=== PATIENT | male | born 1990 | race Caucasian/White ===

== ENCOUNTER 2019-04-16 12:54 | Emergency (ER) | payer MEDICAID ==
[~2019-04-16] VITALS: Ht 182.9 cm; Wt 72.7 kg
[2019-04-16 13:09] VITALS: BP 117/76; TEMP 98.6
[2019-04-16 14:53] VITALS: PULSE 70
[2019-04-16 15:13] LABS: HIV-1p24 Antigen Non-Reactive
[2019-04-16 15:14] LABS: HIV 1/2 Antibodies Non-Reactive
[2019-04-17 16:31] LABS: HEPATITIS B SURFACE ANTIGEN Negative (Negative); HEPATITIS C VIRUS ANTIBODY Negative (Negative)
== END 2019-04-16 14:54 | disposition home or self-care (01) ==
LOC: COL.ER 12:54
PROVIDERS: Emergency Medicine
DX: S69.91XA Unspecified injury of right wrist, hand and finger(s), initial encounter (principal); Z23 Encounter for immunization; F17.210 Nicotine dependence, cigarettes, uncomplicated; W46.1XXA Contact with contaminated hypodermic needle, initial encounter